=== PATIENT | female | born 1985 | race American Indian/Alaskan Native ===

== ENCOUNTER 2018-05-22 22:14 | Emergency (ER) | payer SELFPAY ==
--- NOTE | 2018-05-23 01:03 | C.PDOC ---
History Of Present Illness 33 year old female presents to the ED c/o productive cough with green sputum for the past 2weeks. Patient reports that for the past 2 days she started having more cough associated with SOB and chest discomfort after coughing. Patient denies fever, chills, palpitations, rash, vomit, recent travel. Time Seen by Provider: 05/22/18 23:11 Chief Complaint (Nursing): Cough, Cold, Congestion History Per: Patient History/Exam Limitations: no limitations Onset/Duration Of Symptoms: Days Current Symptoms Are (Timing): Still Present Recent travel outside of the [place]: No Additional History Per: Patient Past Medical History Reviewed: Historical Data, Nursing Documentation, Vital Signs Vital Signs: Last Vital Signs Temp 98.1 F 05/22/18 22:50 Pulse 98 H 05/22/18 22:50 Resp 18 05/22/18 22:50 BP 120/65 05/22/18 22:50 Pulse Ox 100 05/22/18 22:50 - Medical History PMH: No Chronic Diseases Surgical History: No Surg Hx Family History: States: Unknown Family Hx - Social History Hx Alcohol Use: Yes Hx Substance Use: No - Immunization History Hx Tetanus Toxoid Vaccination: No Hx Influenza Vaccination: No Hx Pneumococcal Vaccination: No Review Of Systems Constitutional: Negative for: Fever, Chills ENT: Positive for: Nose Congestion. Negative for: Ear Pain, Nose Discharge Cardiovascular: Positive for: Chest Pain Respiratory: Positive for: Cough, Shortness of Breath, Sputum. Negative for: Wheezing Gastrointestinal: Negative for: Vomiting Skin: Negative for: Rash Neurological: Negative for: Headache Physical Exam - Physical Exam Appears: Non-toxic, No Acute Distress Skin: Normal Color, Warm, Dry Head: Atraumatic, Normacephalic Eye(s): bilateral: Normal Inspection Ear(s): Bilateral: Normal Oral Mucosa: Moist Throat: Normal, No Erythema, No Exudate, Other (uvula midline, airway patent) Neck: Normal ROM, Supple Chest: Symmetrical Cardiovascular: Rhythm Regular, Murmur (systolic) Respiratory: Normal Breath Sounds, No Rales, No Rhonchi, No Wheezing Gastrointestinal/Abdominal: Soft, No Tenderness Extremity: Normal ROM, No Tenderness, No Swelling Neurological/Psych: Oriented x3, Normal Speech, Normal Cognition Gait: Steady ED Course And Treatment O2 Sat by Pulse Oximetry: 100 (On RA) Pulse Ox Interpretation: Normal - Radiology CXR: Interpreted by Me, Viewed By Me CXR Interpretation: Yes: No Acute Disease. No: Infiltrates Progress Note: Plan: - CXR. - zithromax 500 mg PO. Patient was treated for bronchitis, advised to follow up in the clinic for cardiac follow up. Disposition - Disposition Referrals: [facility] [Outside] Disposition: HOME/ ROUTINE Disposition Time: 01:01 Condition: STABLE Additional Instructions: Follow up in clinic within 1-2 days. Return to ED if feel worse. Prescriptions: Benzonatate [Tessalon Perles] 2 tab PO TID #60 sgl Albuterol HFA [Ventolin HFA 90 mcg/actuation (8 g)] 1 puff IH .Q4-6H #1 inhaler Azithromycin [Zithromax] 250 mg PO DAILY #4 tab Instructions: Acute Bronchitis Forms: [employer] (Polish) - Clinical Impression Clinical Impression: Bronchitis - PA / DIRECTOR EMBALMER / Resident Statement MD/DO has reviewed & agrees with the documentation as recorded. - Scribe Statement The provider has reviewed the documentation as recorded by the Scribe Jan Amaral All medical record entries made by the Scribe were at my direction and personally dictated by me. I have reviewed the chart and agree that the record accurately reflects my personal performance of the history, physical exam, [facility] decision making, and the department course for this patient. I have also personally directed, reviewed, and agree with the discharge instructions and disposition.
[2018-05-23 01:19] VITALS: BP 110/70; PULSE 87; RESP 16; TEMP 98
[2018-05-23 01:25] VITALS: O2SAT 100
--- NOTE | 2018-05-23 10:17 | RAD ---
Date of service: 05/23/2018 HISTORY: productive cough/SOB COMPARISON: No prior. TECHNIQUE: Chest PA and lateral FINDINGS: LUNGS: Minor bibasilar atelectasis. PLEURA: No significant pleural effusion identified. No pneumothorax apparent. CARDIOVASCULAR: No aortic atherosclerotic calcification present. Normal cardiac size. No pulmonary vascular congestion. OSSEOUS STRUCTURES: No significant abnormalities. VISUALIZED UPPER ABDOMEN: Normal. OTHER FINDINGS: None. IMPRESSION: Minor bibasilar atelectasis.
== END 2018-05-23 01:19 | disposition home or self-care (01) ==
LOC: C.ER 22:14
DX: J40 Bronchitis, not specified as acute or chronic (principal)